=== PATIENT | female | born 1950 | race Caucasian/White ===

== ENCOUNTER → 2017-03-03 | Outpatient (CLI) | payer MEDICARE, OTHER | END | disposition home or self-care (01) | LOC: PCVCCLINIC 16:02 | PROVIDERS: ATTEND Internal Medicine | DX: E78.5 Hyperlipidemia, unspecified (principal); F41.9 Anxiety disorder, unspecified; Z79.899 Other long term (current) drug therapy; Z87.891 Personal history of nicotine dependence | CPT/HCPCS: 80061; 93005; G0463 ==

== ENCOUNTER → 2017-03-17 | Outpatient (CLI) | payer MEDICARE, OTHER ==
--- NOTE | 2017-03-21 13:21 | PCVCIMAG ---
APPROVED REPORT Exam: Nuclear Stress Test Indication: Chest Pain, Dyspnea, Progressive Fatigue, Heavy Arms Patient Location: Out Patient Stress Nurse: Keysha Ramires RN, Sunita Perry RN AR Tech:Ismael VallecilloSILVER Ht: 5 ft 2 in Wt: 136 lbs BSA: 1.62 m2 HR: 81 bpm BP: 159/73 mmHg BMI: 24.8 Rhythm: Sinus Tachycardia Medical History Medical History: Age, Hyperlipidemia, Former Smoker Medications: Alprazolam Allergies: No known drug allergies Pretest Chest Pain Characteristics: No chest pain Exercise History: Physically active NM EXAM: Myocardial Perfusion REST/STRESS Imaging Protocol: Rest Tc-99m/Stress Tc-99m 1 day Resting Data Rest SPECT myocardial perfusion imaging was performed in supine position 45 minutes following the intravenous injection of 10.3 mCi of Tc-99m Sestamibi. Time of rest injection: 834 Date: 03/17/2017 Exercise Stress At peak stress, the patient was injected intravenously with 31.1mCi of Tc-99m Sestamibi. Time of stress injection: 944 Date: 03/17/2017 The images were gated to evaluate regional wall motion and calculate left ventricular ejection fraction. Study Data Post stress, the left ventricular ejection was 83%.. SSS: 0 SRS: 0 SDS: 0 TID = 0.97. Perfusion There is a small area of moderately reduced uptake in the apical segment of the anterior wall which is seen on the stress images as well as the resting images. This area thickens and moves normally and is most consistent with attenuation artifact. Wall Motion Normal left ventricular wall motion. Nuclear Conclusion 1. LOW RISK STUDY Interpreted by: Rik Bryan MD Electronically Approved: 03/21/2017 13:20:36 Stress Test Details Stress Test: Exercise stress testing was performed using a Jassi protocol. HR Resting HR: 81 bpmMax Heart Rate (APMHR): 152 bpm Max HR Achieved: 153 bpmTarget HR (85% APMHR): 129 bpm % of APMHR: 100 Recovery HR: 93 bpm HR response to stress: Normal HR response to stress BP Resting BP: 159/73 mmHg Max BP: 180/70 mmHg Recovery BP: 139/65 mmHg ECG Resting ECG: Sinus Rhythm, nonspecific ST-T abnormalities Stress ECG: Sinus Tachycardia ST Change: Horizontal ST depression Maximum ST Deviation: 1.5 mm Arrhythmia: Short bursts tachyarrhythmias, APC's Recovery ECG: Sinus Rhythm Clinical Reason for Termination: Fatigue Stress Symptoms: Dyspnea, Fatigue Exercise duration: 08 min 50 sec Exercise capacity: 10.1 METs Overall Exercise Capacity for Age: Good Scale: Active Angina Score: None Symptoms resolved during recovery. Stress ECG Conclusion 1. SUBJECTIVELY NEGATIVE FOR ISCHEMIA 2. ELECTROCARDIOGRAPHICALLY NEGATIVE FOR ISCHEMIA 3. AVERAGE FUNCTIONAL CAPACITY Coates Treadmill Score is 0.5 which is Moderate risk. <Conclusion> 1. SUBJECTIVELY NEGATIVE FOR ISCHEMIA 2. ELECTROCARDIOGRAPHICALLY NEGATIVE FOR ISCHEMIA 3. AVERAGE FUNCTIONAL CAPACITY
== END | disposition home or self-care (01) ==
LOC: PCVCIMAG 07:46
PROVIDERS: ATTEND Internal Medicine
DX: E78.5 Hyperlipidemia, unspecified (principal); R00.0 Tachycardia, unspecified; K52.9 Noninfective gastroenteritis and colitis, unspecified; F41.9 Anxiety disorder, unspecified; Z87.891 Personal history of nicotine dependence
CPT/HCPCS: 78452; 93017; A9500

== ENCOUNTER → 2018-10-13 | Outpatient (CLI) | payer MEDICARE, OTHER ==
--- NOTE | 2018-10-16 08:16 | PCVCIMAG ---
APPROVED REPORT Imaging Protocol: Rest Tc-99m/Stress Tc-99m 1 day Study performed: 10/13/2018 10:29:08 Indication: Chest pain, Tachycardia Patient Location: Out-Patient Stress Nurse: Sunita Perry RN, Keysha Ramires RN CT Tech:Claudine Raquel [facility] Ht: 5 ft 2 in Wt: 140 lbs BSA: 1.64 m2 HR: 77 bpm BP: 145/66 mmHg BMI: 25.60 Rhythm: Normal Sinus Rhythm Medical History Medical History: HTN, Hyperlipidemia, Former Smoker Medications: Xanax, Lisinopril, Simvastatin Allergies: No known drug allergies Cardiac Risk Factors: Age Pretest Chest Pain Characteristics: No chest pain Exercise History: Physically active Resting Data Rest SPECT myocardial perfusion imaging was performed in supine position 454 minutes following the intravenous injection of 10.4 mCi of Tc-99m Sestamibi. Time of rest injection: 0945 Date: 10/13/2018 Administration Route: IV Administration Site: Right Arm Exercise Stress At peak stress, the patient was injected intravenously with 33mCi of Tc-99m Sestamibi. Time of stress injection: 1110 Date: 10/13/2018 Administration Route: IV Administration Site: Right Arm Patient continued to exercise for 1 minute(s). Gated Stress SPECT was performed 30 minutes after stress injection. The images were gated to evaluate regional wall motion and calculate left ventricular ejection fraction. Stress Test Details Stress Test: Exercise stress testing was performed using a Jassi protocol. HRMax Heart Rate (APMHR): 151 bpm Resting HR: 77 bpmTarget HR (85% APMHR): 128 bpm Max HR Achieved: 157 bpm % of APMHR: 103 Recovery HR: 95 bpm HR response to stress: Normal HR response to stress BP Resting BP: 145/66 mmHg Max BP: 193/79 mmHg Recovery BP: 143/65 mmHg BP response to stress: Normal blood pressure response to stress. ECG Resting ECG: Normal Sinus Rhythm, Stress ECG: Sinus Tachycardia, ST Depression ST Change: Horizontal ST depression Maximum ST Deviation: 2.0 mm Arrhythmia: VPC's Recovery ECG: Sinus Rhythm Recovery ST Change: None Recovery ST Deviation: 0 mm Clinical Reason for Termination: Dyspnea, Fatigue Stress Symptoms: Dyspnea Exercise duration: 8 min 00 sec Exercise capacity: 10.10 METs Overall Exercise Capacity for Age: Good Scale: Active Angina Score: None Symptoms resolved during recovery. Stress ECG Conclusion 1. Subjectively negative for ischemia 2. Electrocardiographically negative for ischemia 3. adequate functional capacity Coates Treadmill Score is -2.0 which is Moderate risk. Study Data Post stress, the left ventricular ejection was 86%.. SSS: 0 SRS: 0 SDS: 0 TID = 0.75. Perfusion There is a small area of moderately reduced uptake in the apical segment of the anterior wall which is seen on the stress images as well as the resting images. This area thickens and moves normally and is most consistent with attenuation artifact. Nuclear Conclusion ECG Findings: negative for ischemia Clinical Findings: negative for ischemia Nuclear Findings: negative for ischemia Exercise Capacity: normal 1. low risk study <Conclusion> 1. Subjectively negative for ischemia 2. Electrocardiographically negative for ischemia 3. adequate functional capacity
== END | disposition home or self-care (01) ==
LOC: PCVCIMAG 09:51
PROVIDERS: ATTEND Internal Medicine
DX: R00.0 Tachycardia, unspecified (principal); R07.9 Chest pain, unspecified; I10 Essential (primary) hypertension; E78.5 Hyperlipidemia, unspecified; Z87.891 Personal history of nicotine dependence
CPT/HCPCS: 78452; 93017; A9500

== ENCOUNTER → 2018-10-23 | Outpatient (CLI) | payer MEDICARE, OTHER | END | disposition home or self-care (01) | LOC: PCVCCLINIC 11:07 | PROVIDERS: ATTEND Internal Medicine | DX: R07.89 Other chest pain (principal); R06.00 Dyspnea, unspecified; E78.5 Hyperlipidemia, unspecified; Z87.898 Personal history of other specified conditions; Z79.82 Long term (current) use of aspirin | CPT/HCPCS: 93005; G0463 ==